=== PATIENT | male | born 1950 | race Caucasian/White ===

== ENCOUNTER 2017-07-20 10:04 | Day surgery (SDC) | payer MEDICARE ==
[~2017-07-20 10:04] MED LIST: ALBU8I INH; ALLO100T PO; B COTAB3 PO; COZA50TA PO; FURO1TAB93 PO; GABA300C3 PO; MAGN250T5 PO; MULTCAP13 PO; OMEG1CAP53 PO; PREG75 PO; SPIR100 PO
--- NOTE | 2017-07-20 11:27 | RADRPT ---
EXAM DATE/TIME: 07/20/2017 10:27 [place] COMPARISON: No previous studies available for comparison. INDICATIONS : Abdominal distention and weight gain. MEDICAL HISTORY : Carcinoma, prostate. Hypertension. Cirrhosis. Liver failure. Portal hypertension. Gout. Anxiety. Radi ation therapy. SURGICAL HISTORY : Appendectomy. Colon resection. Prostatectomy. Endoscopy. Colonoscopy. ENCOUNTER: Initial ACUITY: 1 day PAIN SCORE: 0/10 LOCATION: Abdomen. AREA EVALUATED: Abdomen. FINDINGS: Imaging of the abdomen and pelvis was performed to evaluate for ascites for possible paracentesis. N o free fluid is visualized. CONCLUSION: No free fluid is visualized within the abdomen or pelvis. Therefore, no paracentesis was performed. Syed Rahman MD on July 20, 2017 at 11:25 Board Certified Radiologist. This report was verified electronically.
== END 2017-07-20 11:56 | disposition home or self-care (01) ==
LOC: HRAD 10:04 → HRIP 10:06 → HRAD 11:56
PROVIDERS: ATTEND Internal Medicine Gastroenterology
DX: R18.8 Other ascites (principal); K74.60 Unspecified cirrhosis of liver; K76.6 Portal hypertension; R63.5 Abnormal weight gain; M10.9 Gout, unspecified; Z85.46 Personal history of malignant neoplasm of prostate
CPT/HCPCS: 76705